=== PATIENT | female | born 1975 | race Caucasian/White ===

== ENCOUNTER 2017-06-10 07:47 | Day surgery (SDC) | payer OTHER ==
[~2017-06-10] VITALS: Ht 157.5 cm; Wt 76.7 kg
[~2017-06-10 07:47] MED LIST: ALLERGY MEDICAT25 M1 PO; AMOX TR-K CLV1 EAC4 PO; ATIVAN0.5 MG PO; AZITHROMYCIN250 MG1 PO; CELEXA40 MG PO; CITALOPRAM HYDROBROM; CLONAZEPAM; HYDROCHLOROTHIA25 MG PO; LORAZEPAM0.5 MG PO; NORCO 5/3251 TABLET PO; PREDNISONE10 M1 PO; PRINIVIL20 MG PO; PROAIR HFA8.5 GM IH; SERTRALINE HCL50 MG PO; TRAMADOL HCL50 MG PO; TUMS500 MG PO; VALTREX50 MG/ML PO; VITAMIN C PO; ZOFRAN4 MG PO; ZOLOFT100 MG PO; ZYRTEC; ZYRTEC10 M3 PO
[2017-06-10 08:15] VITALS: BP 129/82
[2017-06-10] MEDS ORDERED: IBUPROFEN800 MG PO (10:09)
[2017-06-10 10:53] VITALS: BP 101/66
[2017-06-10 11:53] VITALS: BP 119/61
== END 2017-06-10 12:00 | disposition home or self-care (01) ==
LOC: SDC 07:47
PROC: 0UCC7ZZ Extirpation of Matter from Cervix, Via Natural or Artificial Opening (ICD-10-PCS; principal; 2017-06-10)
DX: Z46.89 Encounter for fitting and adjustment of other specified devices (principal); N89.8 Other specified noninflammatory disorders of vagina; I10 Essential (primary) hypertension; K21.9 Gastro-esophageal reflux disease without esophagitis; F17.200 Nicotine dependence, unspecified, uncomplicated; E66.9 Obesity, unspecified; Z68.30 Body mass index [BMI] 30.0-30.9, adult; R73.09 Other abnormal glucose
CPT/HCPCS: J0690; J1100; J1885; J2250; J2405; J3010; Q0175